=== PATIENT | female | born 1990 | race African-American/Black ===

== ENCOUNTER 2020-05-22 14:00 | Inpatient (IN) | payer OTHER ==
[2020-05-22 15:09] VITALS: BMI 28.8
--- NOTE | 2020-05-22 18:41 | HP ---
Past Medical History - Primary Care Physician PCP:: Princess Borges - Admission Chief Complaint: Referred from diagnostic center for delivery History of Present Illness: 30 yo . JANIE 05/17/2020, EGA 40 week 5 days referred with non reassuring heart tracing for delivery No bleeding or leaking fluid per vagina. Patient reviewed by Perinatologist and delivery recommended. History Source: Patient Limitations to Obtaining History: No Limitations - Past Medical History ...: 2 ...Para: 0 ...Term: 0 ...: 0 ...Spon : 0 ...Induced : 1 ...Living Children: 0 ...Multiple Gestation: 0 ...LMP: 08/11/19 ... Weeks Gestation by Dates: 40.5 ...EDC by Dates: 05/17/20 ...EDC by Sono: 05/13/20 - Past Surgical History Hx Myomectomy: No Hx Transabdominal Cerclage: No - Smoking History Smoking history: Never smoked Have you smoked in the past 12 months: No - Alcohol/Substance Use Hx Alcohol Use: No History of Substance Use: reports: None - Social History Usual Living Arrangement: Yes: With Significant Other Do you think of yourself as: Straight/Heterosexual History of Recent Travel: No Home Medications - Allergies Allergies/Adverse Reactions: Allergies Allergy/AdvReac Type Severity Reaction Status Date / Time No Known Allergies Allergy Verified 05/22/20 15:45 - Home Medications Home Medications: Ambulatory Orders No122/Iron/Folic Acid [ Multi Tablet] 1 each PO DAILY 05/22/20 Family Medical History Family History: Denies Review of Systems - Review of Systems Constitutional: reports: No Symptoms Eyes: reports: No Symptoms HENT: reports: No Symptoms Neck: reports: No Symptoms Cardiovascular: reports: No Symptoms Respiratory: reports: No Symptoms Gastrointestinal: reports: No Symptoms Genitourinary: reports: No Symptoms Breasts: reports: No Symptoms Reported Musculoskeletal: reports: No Symptoms Integumentary: reports: No Symptoms Neurological: reports: No Symptoms Endocrine: reports: No Symptoms Hematology/Lymphatic: reports: No Symptoms Psychiatric: reports: No Symptoms Physical Exam - Maternity Vital Signs: Vital Signs Temperature 98.8 F 05/22/20 16:00 Pulse Rate 104 H 05/22/20 16:00 Respiratory Rate 18 05/22/20 16:00 Blood Pressure 137/65 05/22/20 16:00 O2 Sat by Pulse Oximetry (%) Constitutional: Yes: Well Nourished Eyes: Yes: WNL HENT: Yes: WNL Neck: Yes: WNL Cardiovascular: Yes: WNL Lungs: Clear to auscultation - Abdominal Exam/OB Fundal Height: 40 Number of Fetuses: Single Presentation: Vertex Regularity: Irritability Monitor Mode: External Heart Rate (range): 140 Heart Rate Location: [facility] Category: I Accelerations: Uniform Decelerations: Variable - Vaginal Exam/OB Vaginal Bleeding: No Speculum Exam: No Dilatation (cm): 1 Effacement (%): 0 Amniotic Membrane Status: Intact Presentation: Vertex/Position Station: -3 - Physical Exam Musculoskeletal: Yes: WNL Extremities: Yes: WNL Edema: No Integumentary: Yes: WNL ...Motor Strength: WNL Psychiatric: Yes: WNL Hemorrhage Risk Assessment - Risk Factors Medium Risk Factors: Yes: None High Risk Factors: Yes: None Risk Score: 1 Risk Level: Medium Risk Problem List - Problems (1) 40 weeks gestation of Code(s): Z3A.40 - 40 WEEKS GESTATION OF (2) Placental insufficiency in third trimester Code(s): O36.5130 - MATERN CARE FOR OR SUSP PLACNTL INSUFF, THIRD TRI, UNSP Assessment/Plan Full term gestation with Placental Insufficiency and non reassuring heart status Admit to L and D for management.
[2020-05-22 19:02] LABS: BASO % 0.2 % (0-2.0); EOS % 0.3 % (0-4.5); HEMATOCRIT 32.1 % (32.4-45.2); HEMOGLOBIN 10.5 GM/dL (10.7-15.3); LYMPH % 18.6 % (8-40); MCH 27.8 pg (25.7-33.7); MCHC 32.7 g/dl (32.0-36.0); MEAN CELL VOLUME 85.1 fl (80-96); MEAN PLT VOLUME 7.2 fl (7.5-11.1); MONO % 4.8 % (3.8-10.2); NEUT % 76.1 % (42.8-82.8); PLATELET COUNT 419 K/MM3 (134-434); RBC 3.77 M/mm3 (3.60-5.2); RDW 15.5 % (11.6-15.6); WHITE BLOOD COUNT 11.4 K/mm3 (4.0-10.0)
[2020-05-22] MEDS ORDERED: AMPICILLIN - 2 GM in SODIUM CHLORIDE 100 ML IVPB ONE (19:07)
[2020-05-22 19:17] LABS: INR 0.91 (0.83-1.09); PROTHROMBIN TIME (PATIENT) 10.7 SEC (9.7-13.0)
[2020-05-22 19:20] LABS: ACTIVATED PTT 25.4 SECONDS (25.2-36.5)
[2020-05-22 19:25] LABS: BLOOD UREA NITROGEN 6.7 mg/dL (7-18); CALCIUM 8.6 mg/dL (8.5-10.1); CREATININE 0.5 mg/dL (0.55-1.3); POTASSIUM 3.7 mmol/L (3.5-5.1)
[2020-05-22] MEDS ORDERED: DINOPROSTONE 10 MG VAGINAL SUPPOSITORY VG ONE (20:12)
--- NOTE | 2020-05-22 20:18 | PN ---
Progress Note (short form) - Note Progress Note: Patient resting in bed. VSS, afebrile EFM - Baseline 155/min, moderate variability, accelerations, no decelerations Tocos - irritability Pelvic - 1cm/long/posterior/vertex Plan - Cervidil inserted for cervical ripening Anticipate vaginal delivery Problem List - Problems (1) 40 weeks gestation of Code(s): Z3A.40 - 40 WEEKS GESTATION OF (2) Placental insufficiency in third trimester Code(s): O36.5130 - MATERN CARE FOR OR SUSP PLACNTL INSUFF, THIRD TRI, UNSP
[2020-05-22] MEDS ORDERED: AMPICILLIN - 1 GM in SODIUM CHLORIDE 100 ML IVPB SCH (23:10)
[2020-05-23] MEDS ORDERED: AMPICILLIN - 2 GM in SODIUM CHLORIDE 100 ML IVPB ONE (02:00)
[2020-05-23] MEDS ORDERED: BUTORPHANOL TARTRATE 1 MG/ML VIAL IVPB ONE (02:05)
[2020-05-23] MEDS ORDERED: PROMETHAZINE HCL 25 MG/1 ML VIAL IVPB ONE (02:05)
[2020-05-23] MEDS ORDERED: BUTORPHANOL TARTRATE 1 MG/ML VIAL ONE ×4 (02:12→07:45)
[2020-05-23] MEDS ORDERED: PROMETHAZINE HCL 25 MG/1 ML VIAL ONE ×2 (02:12→07:45)
[2020-05-23] MEDS ORDERED: SODIUM CHLORIDE 100 ML IVPB ONE ×2 (02:12→06:25)
[2020-05-23] MEDS ORDERED: AMPICILLIN SODIUM 2 GM VIAL ONE (02:12)
[2020-05-23] MEDS ORDERED: AMPICILLIN SODIUM 1 GM VIAL ONE (06:25)
[2020-05-23] MEDS: AMPICILLIN - 1 GM in SODIUM CHLORIDE 100 ML IVPB SCH ×3 (06:30→15:42)
[2020-05-23] MEDS ORDERED: ACETAMINOPHEN 325 MG TABLET (FP) ONE (08:13)
[2020-05-23] MEDS: ACETAMINOPHEN 325 MG TABLET (FP) PO PRN ×2 (08:15→21:38)
[2020-05-23 08:34] LABS: BASO % 0.3 % (0-2.0); HEMATOCRIT 33.5 % (32.4-45.2); HEMOGLOBIN 10.8 GM/dL (10.7-15.3); LYMPH % 6.4 % (8-40); MCH 27.4 pg (25.7-33.7); MCHC 32.2 g/dl (32.0-36.0); MEAN CELL VOLUME 85.1 fl (80-96); MEAN PLT VOLUME 7.4 fl (7.5-11.1); MONO % 4.3 % (3.8-10.2); PLATELET COUNT 416 K/MM3 (134-434); RBC 3.93 M/mm3 (3.60-5.2); RDW 15.4 % (11.6-15.6); WHITE BLOOD COUNT 18.9 K/mm3 (4.0-10.0)
--- NOTE | 2020-05-23 08:38 | PN ---
Progress Note (short form) - Note Progress Note: pt. feeling some uc's vs- 100.3. 130/80 fhr: 165, +accels, mod variability. rare mild molina decel. toco: uc's irreg ve: last at 7:50 when cervidil removed was reportedly 2-3/60 a/p P0 iup at 40 5/7 admitted for iol last night srom ~2am noted to have inc baseline this am and MD nuclear control operator notified who ordered removal of cervidil, po tylenol and inc iv fluids. spokw with patient and partner at this time. although pt. wants vaginal delivery, explained that if FH baseline remains elevated or increased decels, since remote from delivery and primip would recc delivery by . will allow bolus to finish, reposition and plan to reexamine. if fh tracing allows will wait to see if progressing well. will notify anesthesiologist, photographic processor, nursing staff and assistant restaurant general manager of plan. cont close monitoring and GBS prophylaxis.
[2020-05-23 08:46] LABS: INR 0.95 (0.83-1.09); PROTHROMBIN TIME (PATIENT) 11.2 SEC (9.7-13.0)
[2020-05-23 08:48] LABS: ACTIVATED PTT 25.9 SECONDS (25.2-36.5)
[2020-05-23 09:04] LABS: ALBUMIN 2.4 g/dl (3.4-5.0); BILIRUBIN,TOTAL 0.4 mg/dL (0.2-1); BLOOD UREA NITROGEN 4.4 mg/dL (7-18); CALCIUM 8.6 mg/dL (8.5-10.1); CREATININE 0.6 mg/dL (0.55-1.3); TOT PROT 6.3 g/dl (6.4-8.2)
[2020-05-23] MEDS ORDERED: ceFAZolin SODIUM 1 GM VIAL ONE ×2 (09:07→12:59)
[2020-05-23] MEDS ORDERED: CITRIC ACID/SODIUM CITRATE 30 ML UNIT-DOSE CUP PO ONE (10:03)
[2020-05-23] MEDS ORDERED: IBUPROFEN 600 MG TABLET (FP) PO PRN (10:06)
[2020-05-23] MEDS ORDERED: ONDANSETRON 4 MG/2 ML VIAL IVPUSH PRN (10:06)
[2020-05-23] MEDS ORDERED: OXYTOCIN 20 UNITS in 0.9% NS 20 UNIT/1,000 ML INFUS.BAG IV ONE ×2 (10:10→14:33)
--- NOTE | 2020-05-23 10:10 | PN ---
Progress Note (short form) - Note Progress Note: pt. feeling strong uc's vss- Tmax 100.3. Tc: 99.9 abd: soft, nt, gravid ve: 1- 30 / soft/ post ext: no calf tenderness b/l fhr: 155, + accels, moderate variability toco: uc's irreg a/p Primip at 40+ weeks GBS + on iv abx srom x 8 hrs had maternal temp 100.3 and tachycardia resolved for now after iv bolus and tylenol however, patient remote from delivery and potential risks likely outweigh benefits of waiting or proceeding further with induction process. extensive discussion with patient and f.o.b. who agree to at this time consent obtained.
[2020-05-23] MEDS ORDERED: morphine SULFATE/Preservative Free 0.5 MG/ML (1cc Syringe) ONE (10:56)
[2020-05-23] MEDS ORDERED: OXYTOCIN 10 UNITS/ML VIAL ONE (11:03)
[2020-05-23] MEDS ORDERED: KETOROLAC TROMETHAMINE 30 MG/1 ML VIAL ONE (11:03)
[2020-05-23 11:53] LABS: CORD BASE EXCESS -4.6 mmol/L (0-2); CORD PCO2 45.7 mmHg (30-78); CORD pH 7.3 (7.14-7.44)
[2020-05-23] MEDS ORDERED: oxyCODONE HCL 5 MG TABLET PO PRN ×2 (12:23)
[2020-05-23] MEDS ORDERED: METHYLERGONOVINE MALEATE 0.2 MG/1 ML AMP IM PRN (12:23)
--- NOTE | 2020-05-23 12:35 | OP ---
Operative Note - Note: Operative Date: 05/23/20 Pre-Operative Diagnosis: non reassuring status remote from delivery Operation: primary section Findings: live baby girl can x 1 apgars 9,9 vtx normal uterus, tubes and ovaries b/l pitocin and methergine x 1 for atony see op note for details job number [id number] Post-Operative Diagnosis: Same as Pre-op Surgeon: Seth Bird Contract Serviceman: Bharat Vyas Anesthesiologist/RED CROSS EXECUTIVE DIRECTOR: Jaclyn Baez Anesthesia: Spinal Specimens Removed: placenta, uterine and pplacental cultures. Estimated Blood Loss (mls): 750 Operative Report Dictated: Yes
[2020-05-23] MEDS ORDERED: IBUPROFEN 800 MG/8 ML IJ IVPB ONE ×2 (12:42→12:51)
[2020-05-23] MEDS ORDERED: SODIUM CHLORIDE 0.9% P/F 10 ML VIAL IJ ONE ×2 (12:59→13:02)
[2020-05-23] MEDS ORDERED: ePHEDrine SULFATE 50 MG/1 ML AMPULE ONE (13:02)
[2020-05-23] MEDS: ELECTROLYTE-148 SOLN 1,000 ML IV SCH ×2 (13:19→19:00)
[2020-05-23] MEDS ORDERED: OXYTOCIN 20 UNITS in 0.9% NS 20 UNIT/1,000 ML INFUS.BAG IV SCH (16:15)
[2020-05-23 17:23] LABS: EPI CELLS 34 /uL (0-25.1); HYALINE CASTS 5 /uL (0-3.1); URINE APPEARANCE CLEAR; URINE BACTERIA 18 /uL (0-1359); URINE BILIRUBIN NEGATIVE (NEGATIVE); URINE COLOR DK YELLOW; URINE GLUCOSE (UA) NEGATIVE (NEGATIVE); URINE KETONE 2+ (NEGATIVE); URINE LEUK ESTERASE NEGATIVE (NEGATIVE); URINE NITRITE NEGATIVE (NEGATIVE); URINE PROTEIN 1+ (NEGATIVE); URINE RBC 42 /uL (0-23.9); URINE WBC 7 /uL (0-25.8)
[2020-05-23] MEDS: CEFAZOLIN 1 GM/D5W 1 GM/50 ML BAG IVPB SCH (17:51)
[2020-05-23] MEDS ORDERED: CEFAZOLIN 1 GM in DEXTROSE 5%-WATER - 50 ML IVPB SCH (18:00)
[2020-05-23] MEDS: OXYTOCIN 20 UNITS in 0.9% NS 20 UNIT/1,000 ML INFUS.BAG IV SCH ×2 (19:25→21:40)
--- NOTE | 2020-05-23 20:14 | OP ---
DATE OF OPERATION: 05/23/2020 PREOPERATIVE DIAGNOSIS: Nonreassuring status remote from delivery, and term . POSTOPERATIVE DIAGNOSIS: Nonreassuring status remote from delivery, and term . OPERATION: Primary section. SURGEON: Seth Bird MD. ESCROW MANAGER: MORIAH Allred. ANESTHESIOLOGIST: Jaclyn Baez MD. ANESTHESIA: Spinal. ESTIMATED BLOOD LOSS: 750 mL. SPECIMENS COLLECTED: Placenta as well as uterine and placental cultures. FINDINGS: A live baby girl, cord around the neck x1, Apgars 9 and 9, cephalic, normal uterus, tubes, and ovaries bilaterally. PROCEDURE: The patient was taken to the operating room, placed on the table in the dorsal supine position after spinal anesthesia was administered and found to be adequate. Patient was prepped and draped in the usual sterile manner. Then a Pfannenstiel skin incision was made with the scalpel and carried through the level of the underlying fascia using electrocautery. The fascia was incised in the midline and incision extended bilaterally. The fascia was tented up and dissected away from underlying rectus muscles. Rectus muscles were then in the midline. Peritoneum was tented up and entered with good visualization of bowel and bladder. The incision was extended superiorly and inferiorly. The bladder blade was inserted. The lower uterine segment was incised in transverse fashion with the scalpel, and this incision extended bilaterally with the bandage scissors. The infant's head was delivered atraumatically. Nose and mouth were suctioned. Cord around neck x1 was reduced. Remainder of was delivered. The delayed cord clamping was done, and the infant was handed off to the waiting diamond powder technician. The placenta was expressed. Once cord gas segment was obtained, the cord blood collected, and then the placenta was cultured on both surfaces as was the uterine cavity. The uterus was exteriorized and cleared of any clots and debris. Lower uterine segment was closed with running locking 0 Biosyn suture as 1st layer, and then a running in Lembert fashion of 0 Biosyn for the 2nd layer, both with good hemostasis. The gutters were cleared of clots and debris, and the abdomen and pelvis were irrigated with sterile saline. The uterus, tubes, and ovaries otherwise appeared normal. Uterus was returned to the abdomen, and then the area was inspected again, good hemostasis was noted. Sponge, lap, needle, and instruments were all removed from the pelvis at this time in the abdomen, and then the peritoneal cavity was closed with a running 2-0 chromic suture for the peritoneum and interrupted horizontal mattress sutures of 2-0 chromic for the muscle. The fascial layer was closed with running number 1 Vicryl suture. Subcutaneous layer was approximated with 2-0 plain gut, and then the skin layer was closed with kirk. Sterile dressing was placed over the incision upon completion of the procedure. Uterus was then expressed with any remaining clots. The patient had received IV antibiotics preoperatively, IV Pitocin and 1 shot of Methergine intraoperatively due to mild apnea which resolved upon completion of the procedure. The patient was then transferred to recovery room in stable condition. Sponge, lap, needle, instrument count was correct x2. There were no complications. Patient tolerated procedure well. SETH BIRD MD [id number]
[2020-05-23] MEDS: IBUPROFEN 600 MG TABLET (FP) PO PRN (21:37)
[2020-05-23] MEDS: SIMETHICONE 80 MG TAB.CHEW (FP) PO PRN (21:38)
[2020-05-24] MEDS: ACETAMINOPHEN 325 MG TABLET (FP) PO PRN ×3 (01:55→13:31)
[2020-05-24] MEDS: IBUPROFEN 600 MG TABLET (FP) PO PRN ×3 (01:55→13:30)
[2020-05-24] MEDS: SIMETHICONE 80 MG TAB.CHEW (FP) PO PRN ×2 (01:56→13:31)
[2020-05-24] MEDS: CEFAZOLIN 1 GM/D5W 1 GM/50 ML BAG IVPB SCH ×2 (01:56→10:21)
[2020-05-24] MEDS: OXYTOCIN 20 UNITS in 0.9% NS 20 UNIT/1,000 ML INFUS.BAG IV SCH (04:30)
--- NOTE | 2020-05-24 08:53 | PN ---
Progress Note (short form) - Note Progress Note: Anesthesia post op note POD#1. S/P under spinal anesthesia with duramorph. VSS. Pain well controlled. Ambulating. No apparent post anesthesia complications.
[2020-05-24 08:58] LABS: BASO % 0.2 % (0-2.0); EOS % 0.4 % (0-4.5); HEMATOCRIT 27.5 % (32.4-45.2); HEMOGLOBIN 8.8 GM/dL (10.7-15.3); LYMPH % 11.7 % (8-40); MCH 27.3 pg (25.7-33.7); MEAN CELL VOLUME 85.2 fl (80-96); MEAN PLT VOLUME 7.3 fl (7.5-11.1); MONO % 5.5 % (3.8-10.2); NEUT % 82.2 % (42.8-82.8); PLATELET COUNT 347 K/MM3 (134-434); RBC 3.23 M/mm3 (3.60-5.2); RDW 15.6 % (11.6-15.6); WHITE BLOOD COUNT 17.8 K/mm3 (4.0-10.0)
--- NOTE | 2020-05-24 09:26 | PN ---
Progress Note (short form) - Note Progress Note: POD#1: patient comfortable, c/o gas pain; s/p c section for elevated temp remote from delivery VS: exam: abdomen softly distended; dressing dry and in place lochia normal I/P: stable, on antibiotics; cbc
[2020-05-24] MEDS ORDERED: BISACODYL 10 MG SUPP.RECT RC PRN (12:23)
[2020-05-25] MEDS: SIMETHICONE 80 MG TAB.CHEW (FP) PO PRN ×2 (04:21→13:12)
[2020-05-25] MEDS: IBUPROFEN 600 MG TABLET (FP) PO PRN ×2 (04:22→13:11)
[2020-05-25] MEDS: ACETAMINOPHEN 325 MG TABLET (FP) PO PRN ×2 (04:22→13:12)
[2020-05-25 09:52] VITALS: BP 131/72; PULSE 91; TEMP 98.4
[2020-05-25] MEDS ORDERED: BISACODYL 10 MG SUPP.RECT PR ONE (10:37)
--- NOTE | 2020-05-25 10:39 | DS ---
Physical Exam-HOUSE OFFICER Vital Signs: Vital Signs Temperature 98.4 F 05/25/20 09:00 Pulse Rate 91 H 05/25/20 09:00 Respiratory Rate 18 05/25/20 09:00 Blood Pressure 131/72 05/25/20 09:00 O2 Sat by Pulse Oximetry (%) 100 05/23/20 13:00 Constitutional: Yes: Well Nourished, No Distress, Calm Eyes: Yes: WNL, Conjunctiva Clear, EOM Intact HENT: Yes: WNL, Atraumatic, Normocephalic Neck: Yes: WNL, Supple, Trachea Midline Cardiovascular: Yes: WNL, Regular Rate and Rhythm Respiratory: Yes: WNL, Regular, CTA Bilaterally Gastrointestinal: Yes: WNL ...Rectal Exam: Yes: WNL Renal/: Yes: WNL Breast(s): Yes: WNL Musculoskeletal: Yes: WNL Extremities: Yes: WNL Integumentary: Yes: WNL Wound/Incision: Yes: Clean/Dry, Christy Intact Neurological: Yes: WNL, Alert, Oriented ...Motor Strength: WNL Psychiatric: Yes: WNL, Alert, Oriented Labs: CBC, BMP 05/24/20 08:10 05/23/20 08:07 Delivery - Delivery Type of Anesthesia: Spinal Episiotomy/Laceration: None EBL (cc): 750 Delivery, Single - Stages of Labor Date 1st Stage Initiatied: 05/23/20 Time 1st Stage Initiated: 01:00 Date of Delivery: 05/23/20 Time of Delivery: 11:02 Time Placenta Delivered: 11:04 - Condition of Hair Cutter/Demurrage Man Present: Yes Name: Lynsey Fuentes Gender: Female Weight: 3.487 kg Position: Left, OT Total Hours ROM (Hrs/Mins): 9hrs 9min - 1 Minute Total Score: 9 5 Minutes Total Score: 9 - Surveyor Feeding Plan Initial Plan: Elected not to breastfeed exclusively throughout hospitalization Discharge Summary Problems reviewed: Yes Reason For Visit: ADMIT INDUCTION OF LABOR POST DATES Current Active Problems 40 weeks gestation of (Acute) Placental insufficiency in third trimester (Acute) Condition: Good - Instructions Referrals: Seth Bird MD [Staff Physician] - - Home Medications Comprehensive Discharge Medication List: Ambulatory Orders No122/Iron/Folic Acid [ Multi Tablet] 1 each PO DAILY 05/22/20
--- NOTE | 2020-05-29 17:11 | PATH ---
Surgical Pathology Report Patient Name: FAVIO PATTERSON Med. Rec. #: [id number] /Age/Gender: 1990 (Age: 30) / F Account: [id number] Location: [facility] OBS/WALLET ASSEMBLER Taken: 05/23/2020 Received: 05/24/2020 Reported: 05/29/2020 Physicians: Ashley Mays Specimen(s) Received PLACENTA Clinical History Final Diagnosis PLACENTA, SECTION: 502 G THIRD TRIMESTER PLACENTA WITH MODERATE ACUTE CHORIOAMNIONITIS AND MECONIUM-LADEN MACROPHAGES. TRIVASCULAR UMBILICAL CORD WITH MILD ACUTE PHLEBITIS AND ASSOCIATED FUNISITIS. Electronically Signed Grace Feliz M.D. Gross Description The specimen is received fresh labeled placenta and is a 502 gram, 17.5 x 17.0 x 2.7 cm. placenta with attached membranes and umbilical cord. The attached membranes are quintanilla green, meconium stained, translucent with focal opacities and insert marginally. The umbilical cord measures 12 cm. in length and averages 1 cm. in diameter. The cord inserts eccentrically, 3.5 cm. to the nearest margin. No true knots or strictures are identified. Cut surface of the umbilical cord reveals 3 vessels. The surface is santos green, meconium stained with minimal fibrin deposition and appropriate caliber vessels. The maternal surface is red-brown with focal defects. Sectioning reveals red-brown, spongy parenchyma. No lesions are identified. African Studies Professor sections are submitted in three cassettes as follows: 1- membrane rolls and umbilical cord; 2-3- full thickness sections of placenta. /05/26/2020 [facility]/05/26/2020
== END 2020-05-25 15:10 | disposition home or self-care (01) | DRG 787 ==
LOC: JLDR 14:00 → J3W 05-23 14:50
PROVIDERS: ADMIT Obstetrics & Gynecology; ATTEND Obstetrics & Gynecology
PROC: 3E0P7VZ Introduction of Hormone into Female Reproductive, Via Natural or Artificial Opening (ICD-10-PCS; 2020-05-22)
PROC: 10D00Z1 Extraction of Products of Conception, Low, Open Approach (ICD-10-PCS; principal; 2020-05-23)
DX: O76 Abnormality in fetal heart rate and rhythm complicating labor and delivery (principal); O75.2 Pyrexia during labor, not elsewhere classified; O48.0 Post-term pregnancy; O36.5130 Maternal care for known or suspected placental insufficiency, third trimester, not applicable or unspecified; O99.825 Streptococcus B carrier state complicating the puerperium; O69.81X0 Labor and delivery complicated by cord around neck, without compression, not applicable or unspecified; Z3A.40 40 weeks gestation of pregnancy; Z37.0 Single live birth
CPT/HCPCS: 36415; 36600; 80048; 80053; 81003; 82803; 85025; 85461; 85610; 85730; 86780; 86850; 86900; 86901; 86999; 87070; 87077; 87205; 88307-TC; U0003